=== PATIENT | female | born 1965 | race African-American/Black ===

== ENCOUNTER → 2017-08-19 | Outpatient (CLI) | payer MEDICARE ==
[2017-08-19 14:33] LABS: BASO % 0.3 % (0.0-2.0); EOS # 0.1 (0.0-0.7); EOS % 1.3 % (0-4.0); GRAN % 54.7 % (42.2-75.2); LYMPH # 3.2 (1.2-3.4); MEAN CELL VOLUME 91 fl (80.0-100.0); MEAN CORPUSCULAR HGB CONC 32 g/dl (33.0-37.0); MEAN PLATELET VOLUME 11.9 fl (7.4-10.4); MONO # 0.8 (0.1-0.6); MONO % 8.4 % (1.7-9.3); PLATELET COUNT 227 K/mm3 (130-400); RED BLOOD COUNT 3.93 M/mm3 (4.10-5.30); REDCELL DISTRIBUTION WIDTH-CV 12.3 % (11.5-14.5)
[2017-08-19 14:35] LABS: HEMATOCRIT 35.8 % (37.0-47.0); HEMOGLOBIN 11.5 g/dl (12.5-16.0); MEAN CORPUSCULAR HEMOGLOBIN 29 pg (27.0-31.0)
[2017-08-19 14:44] LABS: CALCIUM 9.9 mg/dL (8.4-10.2); CREATININE, serum 0.9 mg/dL (0.52-1.25); POTASSIUM 3.8 mmol/L (3.4-5.0)
== END ==
LOC: COL.LAB 10:55
PROVIDERS: Family Medicine
DX: E11.9 Type 2 diabetes mellitus without complications (principal)

== ENCOUNTER → 2017-12-16 | Outpatient (CLI) | payer MEDICARE ==
[2017-12-16 17:49] LABS: BASO % 0.1 % (0.0-2.0); EOS # 0.1 (0.0-0.7); GRAN # 3.7 (1.4-6.5); GRAN % 48.2 % (42.2-75.2); HEMOGLOBIN 10.3 g/dl (12.5-16.0); LYMPH # 3.3 (1.2-3.4); MEAN CELL VOLUME 89 fl (80.0-100.0); MEAN CORPUSCULAR HEMOGLOBIN 29 pg (27.0-31.0); MEAN CORPUSCULAR HGB CONC 33 g/dl (33.0-37.0); MONO # 0.6 (0.1-0.6); MONO % 7.4 % (1.7-9.3); PLATELET COUNT 195 K/mm3 (130-400); RED BLOOD COUNT 3.55 M/mm3 (4.10-5.30); REDCELL DISTRIBUTION WIDTH-CV 12.2 % (11.5-14.5)
[2017-12-16 17:51] LABS: HEMATOCRIT 31.4 % (37.0-47.0)
[2017-12-16 17:59] LABS: CALCIUM 9.4 mg/dL (8.4-10.2); CREATININE, serum 0.89 mg/dL (0.52-1.25); POTASSIUM 4.1 mmol/L (3.4-5.0)
== END ==
LOC: COL.LAB 17:26
PROVIDERS: Family Medicine
DX: E11.9 Type 2 diabetes mellitus without complications (principal); Z86.2 Personal history of diseases of the blood and blood-forming organs and certain disorders involving the immune mechanism

== ENCOUNTER 2017-12-29 16:45 | Outpatient (RCR) | payer MEDICARE | END 2018-01-10 | disposition home or self-care (01) | LOC: WSPT | DX: R26.89 Other abnormalities of gait and mobility (principal); Z87.39 Personal history of other diseases of the musculoskeletal system and connective tissue | CPT/HCPCS: G8978-GP; G8979-GP ==

== ENCOUNTER → 2018-02-03 | Outpatient (CLI) | payer MEDICARE ==
[2018-02-03 14:14] LABS: BASO % 0.2 % (0.0-2.0); EOS # 0.1 (0.0-0.7); EOS % 0.6 % (0-4.0); GRAN # 5.5 (1.4-6.5); LYMPH # 2.6 (1.2-3.4); LYMPH % 29.2 % (20.0-51.0); MEAN CELL VOLUME 88 fl (80.0-100.0); MEAN CORPUSCULAR HEMOGLOBIN 29 pg (27.0-31.0); MEAN CORPUSCULAR HGB CONC 33 g/dl (33.0-37.0); MEAN PLATELET VOLUME 12.7 fl (7.4-10.4); MONO # 0.7 (0.1-0.6); MONO % 7.8 % (1.7-9.3); PLATELET COUNT 194 K/mm3 (130-400); RED BLOOD COUNT 3.82 M/mm3 (4.10-5.30); REDCELL DISTRIBUTION WIDTH-CV 12.2 % (11.5-14.5)
[2018-02-03 14:15] LABS: HEMATOCRIT 33.7 % (37.0-47.0)
[2018-02-03 14:29] LABS: ALBUMIN 4.1 gm/dL (3.5-5.0); BILIRUBIN,TOTAL 0.2 mg/dL (0.0-1.0); CALCIUM 9.5 mg/dL (8.4-10.2); CREATININE, serum 0.95 mg/dL (0.52-1.25); POTASSIUM 4.3 mmol/L (3.4-5.0); TOTAL PROTEIN 7.6 gm/dL (6.4-8.2)
[2018-02-03 14:58] LABS: TSH w REFLEX 1.55 uIU/mL (0.465-4.680)
== END ==
LOC: COL.LAB 12:24
PROVIDERS: Family Medicine
DX: E11.9 Type 2 diabetes mellitus without complications (principal); I10 Essential (primary) hypertension; R53.83 Other fatigue; Z86.2 Personal history of diseases of the blood and blood-forming organs and certain disorders involving the immune mechanism

== ENCOUNTER → 2018-02-18 | Outpatient (CLI) | payer MEDICARE ==
[~2018-02-18] VITALS: Ht 172.7 cm; Wt 102.5 kg
[~2018-02-18] MED LIST: HUMALOG100 U/ML SQ; HYZAAR 25 MG-101 TAB PO; NEURONTIN300 MG/CAP PO; PRIL40 PO; TRESIBA FL100 UNIT/1 SQ
[2018-02-18 16:26] VITALS: BP 140/60; PULSE 80
== END ==
LOC: LIGHT 11:50
DX: E11.40 Type 2 diabetes mellitus with diabetic neuropathy, unspecified (principal); I10 Essential (primary) hypertension; E66.9 Obesity, unspecified; Z68.34 Body mass index [BMI] 34.0-34.9, adult; Z71.3 Dietary counseling and surveillance
CPT/HCPCS: G0463

== ENCOUNTER 2018-04-14 10:30 | Outpatient (RCR) | payer MEDICARE | END 2018-04-19 | disposition home or self-care (01) | LOC: WSPT | DX: R26.89 Other abnormalities of gait and mobility (principal); Z87.39 Personal history of other diseases of the musculoskeletal system and connective tissue | CPT/HCPCS: G8978-GP; G8979-GP ==

== ENCOUNTER → 2018-04-14 | Outpatient (CLI) | payer MEDICARE ==
[2018-04-14 16:28] LABS: BASO % 0.4 % (0.0-2.0); EOS # 0.1 (0.0-0.7); GRAN # 4.7 (1.4-6.5); GRAN % 57.2 % (42.2-75.2); HEMOGLOBIN 10.7 g/dl (12.5-16.0); LYMPH # 2.7 (1.2-3.4); LYMPH % 32.9 % (20.0-51.0); MEAN CELL VOLUME 92 fl (80.0-100.0); MEAN CORPUSCULAR HEMOGLOBIN 29 pg (27.0-31.0); MEAN CORPUSCULAR HGB CONC 31 g/dl (33.0-37.0); MEAN PLATELET VOLUME 12.4 fl (7.4-10.4); MONO # 0.7 (0.1-0.6); PLATELET COUNT 213 K/mm3 (130-400); RED BLOOD COUNT 3.73 M/mm3 (4.10-5.30)
[2018-04-14 16:31] LABS: HEMATOCRIT 34.3 % (37.0-47.0)
[2018-04-14 16:45] LABS: HIV 1/2 Antibodies Non-Reactive; HIV-1p24 Antigen Non-Reactive
== END ==
LOC: COL.LAB 14:32
PROVIDERS: Family Medicine
DX: Z13.0 Encounter for screening for diseases of the blood and blood-forming organs and certain disorders involving the immune mechanism (principal); Z11.4 Encounter for screening for human immunodeficiency virus [HIV]

== ENCOUNTER → 2018-09-01 | Outpatient (CLI) | payer MEDICARE ==
[2018-09-01 17:24] LABS: BASO % 0.2 % (0.0-2.0); EOS # 0.1 (0.0-0.7); EOS % 0.7 % (0-4.0); GRAN # 5.9 (1.4-6.5); GRAN % 61.1 % (42.2-75.2); HEMOGLOBIN 10.5 g/dl (12.5-16.0); MEAN CELL VOLUME 89 fl (80.0-100.0); MEAN CORPUSCULAR HEMOGLOBIN 28 pg (27.0-31.0); MEAN CORPUSCULAR HGB CONC 31 g/dl (33.0-37.0); MEAN PLATELET VOLUME 12.6 fl (7.4-10.4); MONO # 0.6 (0.1-0.6); MONO % 6.6 % (1.7-9.3); PLATELET COUNT 214 K/mm3 (130-400); RED BLOOD COUNT 3.78 M/mm3 (4.10-5.30); REDCELL DISTRIBUTION WIDTH-CV 12.5 % (11.5-14.5)
[2018-09-01 17:28] LABS: HEMATOCRIT 33.6 % (37.0-47.0)
[2018-09-01 17:38] LABS: ALBUMIN 3.8 gm/dL (3.5-5.0); BILIRUBIN,TOTAL 0.2 mg/dL (0.0-1.0); CALCIUM 9.7 mg/dL (8.4-10.2); CHOLESTEROL RISK RATIO 4.6; CREATININE, serum 1.06 mg/dL (0.52-1.25); POTASSIUM 3.5 mmol/L (3.4-5.0); TOTAL PROTEIN 7.7 gm/dL (6.4-8.2)
[2018-09-01 23:13] LABS: FOLLICLE STIMULATING HORMONE 15.8 mIU/mL (())
== END ==
LOC: ZCOL.LAB 16:55
PROVIDERS: Family Medicine
DX: Z13.6 Encounter for screening for cardiovascular disorders (principal); D64.9 Anemia, unspecified; I10 Essential (primary) hypertension; N95.1 Menopausal and female climacteric states

== ENCOUNTER → 2018-09-24 | Outpatient (CLI) | payer MEDICARE | LOC: ZCOL.LAB 17:36 | DX: E11.621 Type 2 diabetes mellitus with foot ulcer (principal) ==

== ENCOUNTER → 2019-05-02 | Outpatient (CLI) | payer MEDICARE ==
[2019-05-02 17:26] LABS: ALBUMIN 4.3 gm/dL (3.5-5.0); BILIRUBIN,TOTAL 0.3 mg/dL (0.0-1.0); CREATININE, serum 0.86 (0.52-1.25); TOTAL PROTEIN 7.8 gm/dL (6.4-8.2)
[2019-05-02 17:34] LABS: BASO % 0.2 % (0.0-2.0); EOS # 0.1 (0.0-0.7); EOS % 0.9 % (0-4.0); GRAN # 6.4 (1.4-6.5); GRAN % 60.3 % (42.2-75.2); LYMPH # 3.4 (1.2-3.4); LYMPH % 32.2 % (20.0-51.0); MEAN CELL VOLUME 92 fl (80.0-100.0); MEAN CORPUSCULAR HEMOGLOBIN 29 pg (27.0-31.0); MEAN CORPUSCULAR HGB CONC 31 g/dl (33.0-37.0); MEAN PLATELET VOLUME 12.4 fl (7.4-10.4); MONO # 0.7 (0.1-0.6); MONO % 6.2 % (1.7-9.3); PLATELET COUNT 240 K/mm3 (130-400); RED BLOOD COUNT 3.81 M/mm3 (4.10-5.30); REDCELL DISTRIBUTION WIDTH-CV 12.6 % (11.5-14.5)
[2019-05-03 17:13] LABS: HEPATITIS C VIRUS ANTIBODY Negative (Negative); HIV ANTIGEN-ANTIBODY COMBO-AMS Negative (Negative)
== END ==
LOC: ZCOL.LAB 10:12
PROVIDERS: Family Medicine
DX: Z11.3 Encounter for screening for infections with a predominantly sexual mode of transmission (principal); Z11.4 Encounter for screening for human immunodeficiency virus [HIV]; Z11.59 Encounter for screening for other viral diseases; L50.9 Urticaria, unspecified; E11.621 Type 2 diabetes mellitus with foot ulcer; H60.501 Unspecified acute noninfective otitis externa, right ear

== ENCOUNTER → 2019-09-21 | Outpatient (CLI) | payer MEDICARE ==
[2019-09-21 20:13] LABS: BASO % 0.2 % (0.0-2.0); EOS % 0.4 % (0-4.0); GRAN # 6.1 (1.4-6.5); HEMOGLOBIN 10.7 g/dl (12.5-16.0); LYMPH # 2.2 (1.2-3.4); LYMPH % 24.5 % (20.0-51.0); MEAN CELL VOLUME 91 fl (80.0-100.0); MEAN CORPUSCULAR HEMOGLOBIN 29 pg (27.0-31.0); MEAN CORPUSCULAR HGB CONC 32 g/dl (33.0-37.0); MEAN PLATELET VOLUME 13.5 fl (7.4-10.4); MONO # 0.6 (0.1-0.6); MONO % 6.7 % (1.7-9.3); PLATELET COUNT 182 K/mm3 (130-400); RED BLOOD COUNT 3.75 M/mm3 (4.10-5.30); REDCELL DISTRIBUTION WIDTH-CV 12.9 % (11.5-14.5)
[2019-09-21 20:22] LABS: BILIRUBIN,TOTAL 0.3 mg/dL (0.0-1.0); CALCIUM 9.1 mg/dL (8.4-10.2); CHOLESTEROL RISK RATIO 3.8; CREATININE, serum 0.88 (0.52-1.25); POTASSIUM 4.1 mmol/L (3.4-5.0); TOTAL PROTEIN 7.4 gm/dL (6.4-8.2)
[2019-09-21 20:52] LABS: THYROID STIMULATING HORMONE 1.07 uIU/mL (0.465-4.680)
[2019-09-21 20:57] LABS: HIV 1/2 Antibodies Non-Reactive; HIV-1p24 Antigen Non-Reactive
== END ==
LOC: ZCOL.LAB 16:40
PROVIDERS: Family Medicine
DX: Z11.4 Encounter for screening for human immunodeficiency virus [HIV] (principal); I10 Essential (primary) hypertension; E11.9 Type 2 diabetes mellitus without complications

== ENCOUNTER → 2019-10-07 | Outpatient (CLI) | payer MEDICARE | LOC: COL.LAB 13:26 | DX: E11.621 Type 2 diabetes mellitus with foot ulcer (principal); Z87.39 Personal history of other diseases of the musculoskeletal system and connective tissue ==

== ENCOUNTER 2019-12-02 16:45 | Inpatient (IN) | payer MEDICARE ==
[~2019-12-02] VITALS: Ht 172.7 cm; Wt 88.6 kg
[~2019-12-02 16:45] MED LIST changes: -ERY-TAB250 M1 PO; -FLONASE NASAL S16 GM NS; -HCTZ 25MG TAB25 MG PO; -OZEMPIC0.25 MG/0. SQ; -PROBIOTIC FORMU1 CAP PO; -REFRESH TEARS 330 ML OP; -ZYRTEC 10MG10 MG PO
[2019-12-02] MEDS ORDERED: HCTZ 25MG TAB25 MG PO (17:16)
[2019-12-02] MEDS ORDERED: OZEMPIC0.25 MG/0. SQ (17:17)
[2019-12-02] MEDS ORDERED: PROBIOTIC FORMU1 CAP PO (17:17)
[2019-12-02] MEDS ORDERED: ZYRTEC 10MG10 MG PO (17:18)
[2019-12-02] MEDS ORDERED: FLONASE NASAL S16 GM NS (17:18)
[2019-12-02] MEDS ORDERED: ERY-TAB250 M1 PO (17:18)
[2019-12-02 17:44] LABS: ALBUMIN 3.6 gm/dL (3.5-5.0); BILIRUBIN,TOTAL 0.8 mg/dL (0.0-1.0); CALCIUM 9.4 mg/dL (8.4-10.2); POTASSIUM 3.5 mmol/L (3.4-5.0); TOTAL PROTEIN 8.3 gm/dL (6.4-8.2)
[2019-12-02 18:20] LABS: C-REACTIVE PROTEIN 37.8 mg/dL (0.0-0.9)
[2019-12-02 18:41] LABS: MEAN CELL VOLUME 86 fl (80.0-100.0); MEAN CORPUSCULAR HGB CONC 32 g/dl (33.0-37.0); MEAN PLATELET VOLUME 11.8 fl (7.4-10.4); PLATELET COUNT 258 K/mm3 (130-400); RED BLOOD COUNT 3.51 M/mm3 (4.10-5.30); REDCELL DISTRIBUTION WIDTH-CV 13.2 % (11.5-14.5)
[2019-12-02 18:55] LABS: HEMATOCRIT 30.1 % (37.0-47.0); HEMOGLOBIN 9.6 g/dl (12.5-16.0); MEAN CORPUSCULAR HEMOGLOBIN 27 pg (27.0-31.0)
[2019-12-02 19:16] LABS: BAND 9 % (0-10); HYPOCHROMIA 3+; LYMPHOCYTE 18 % (20.0-51.0); METAMYELOCYTE 1 % (0-0); MYELOCYTE 1 % (0-0); NEUTROPHILS 70 % (42.0-75.2); PLATELET ESTIMATE NORMAL (NORMAL)
[2019-12-02] MEDS ORDERED: REFRESH TEARS 330 ML OP (20:01)
--- NOTE | 2019-12-02 21:45 | NUR ---
ARRIVED TO FLOOR VIA W/C. IS ALERT AND ORIENTED X4. HAS SL TO RIGHT AC. RT FOOT WRAPPED.
[2019-12-02 21:58] VITALS: BP 141/66; PULSE 103; TEMP 99.2
[2019-12-02 22:40] LABS: INR 1.2 (0.8-3.0); PROTHROMBIN TIME 13.7 SECONDS (9.7-12.8)
--- NOTE | 2019-12-02 23:15 | NUR ---
WOUND CULTURES OBTAINED FROM 3 AREAS ON RIGHT FOOT THAT ARE OPEN AND DRAINING. RT HEEL, RT MEDIAL AND RT LATERAL.
--- NOTE | 2019-12-02 23:58 | NUR ---
MEDICATED WITH PHENERGAN 25MG PO FOR NAUSEA AND ES TYLENOL 1000MG PO FOR BACK PAIN. IV ANTIBIOTIC INFUSING TO RIGHT AC SITE WITHOUT REDNESS OR SWELLING.
[2019-12-03] VITALS (7 sets, daily range): BP systolic 108–153; BP diastolic 40–87; PULSE 80–108; TEMP 98.1–99.7
--- NOTE | 2019-12-03 03:00 | NUR ---
Last dose of oral potassium given. Pt resting in bed, IV antibiotic complete, line flushed.
--- NOTE | 2019-12-03 04:52 | NUR ---
Pt had emesis in bathroom trashcan, reports continued nausea since oral potassium.
--- NOTE | 2019-12-03 05:15 | NUR ---
New orders received from Mike JEFFERS, dose of Zofran 4mg IVP given now.
--- NOTE | 2019-12-03 06:00 | NUR ---
Phenergan 25mg po given with Protonix this AM. IV Zosyn infusing to right AC without problem.
[2019-12-03 08:34] LABS: MEAN CELL VOLUME 85 fl (80.0-100.0); MEAN CORPUSCULAR HGB CONC 33 g/dl (33.0-37.0); MEAN PLATELET VOLUME 11.3 fl (7.4-10.4); PLATELET COUNT 242 K/mm3 (130-400); REDCELL DISTRIBUTION WIDTH-CV 13.2 % (11.5-14.5)
[2019-12-03 08:41] LABS: HEMATOCRIT 27.1 % (37.0-47.0); MEAN CORPUSCULAR HEMOGLOBIN 28 pg (27.0-31.0)
[2019-12-03 08:46] LABS: ALBUMIN 3.3 gm/dL (3.5-5.0); BILIRUBIN,TOTAL 0.6 mg/dL (0.0-1.0); CALCIUM 9.2 mg/dL (8.4-10.2); CREATININE, serum 1.06 (0.52-1.25); POTASSIUM 3.2 mmol/L (3.4-5.0); TOTAL PROTEIN 7.6 gm/dL (6.4-8.2)
[2019-12-03 09:25] LABS: BAND 14 % (0-10); LYMPHOCYTE 19 % (20.0-51.0); METAMYELOCYTE 2 % (0-0); NEUTROPHILS 59 % (42.0-75.2); PLATELET ESTIMATE NORMAL (NORMAL)
--- NOTE | 2019-12-03 10:00 | NUR ---
Patient resting in bed at this time. Patient is alert and oriented, answers questions appropriately. CT arrives to take patient for CT scan, will administer scheduled medications upon return. Patient leaves the floor via wheelchair.
--- NOTE | 2019-12-03 10:45 | NUR ---
Patient returns from CT via wheel chair. Patient denies pain in right foot, dressing is CDI, no drainage noted. Patient denies needs at this time, call light within reach.
--- NOTE | 2019-12-03 11:15 | NUR ---
Patient reports burning and coldness at peripherial IV site. Visual assessment shows no redness or swelling but patient is unable to tolerate an IV flush to the site. IV access discontinued and reported access loss to hospitalist, will await central line placement. Patient denied further needs at this time, call light within reach.
--- NOTE | 2019-12-03 13:43 | NUR ---
Software Licensing Specialist offered prayer and support with patient.
--- NOTE | 2019-12-03 17:46 | NUR ---
Patient currently resting, rouses easily. Patient has c/o nausea and feeling of acid reflux, administered PRN anitemetics per orders. Patient continues to deny pain. IVF, antibiotics, and IV potassium run per orders. Patient currently eating dinner, denies needs at this time, call light within reach.
--- NOTE | 2019-12-03 21:00 | NUR ---
Changed dressing to right foot. Placed saline soaked gauze to right heel and right lateral wounds, covered right medial, heel and lateral wounds with ABD's and covered with kerlix. Wounds are very oderous and draining purulent drainage. Pt expresses concerns about amputation, desires debridement first before making any other decisions.
--- NOTE | 2019-12-03 21:10 | NUR ---
Medicated with ES Tylenol 2 tabs for back pain. Denies nausea at this time. Has IVF and antibiotics infusing to RIJ. Was given literature on Gangrene and Below the knee amputation.
--- NOTE | 2019-12-04 01:30 | NUR ---
RECEIVED PHONE CALL FROM [facility] REGARDING THIS PATIENT. [facility] REPORTS THEY RECEIVED AN EMERGENCY CALL FROM PTS [facility] STATING PT WAS "SEPTIC AND HAVING AN AMPUTATION". PT HAS A SON IN THE [employer], STATIONED IN [place]. UPDATED [facility] ON PATIENT'S CONDITION STABLE. [facility] RESPIRATORY THERAPY MANAGER: CYNTHIA CASE #[id number] PHONE NUMBER [phone]
--- NOTE | 2019-12-04 04:20 | NUR ---
Pt had linens and gown changed. She did sponge self off. Eating turkey sandwich, BS=87mg/dl. Discussed her desire to see Dr Mays regarding her rt foot, encouraged pt to speak with hospitalist today about this. Pt also asked about the [place], was informed about phone call received from [email or web address] at 0130.
[2019-12-04 04:45] VITALS: BP 128/66; PULSE 97; TEMP 97.7
[2019-12-04 07:34] LABS: BASO # 0.1 (0.0-0.2); BASO % 0.3 % (0.0-2.0); EOS # 0.1 (0.0-0.7); EOS % 0.5 % (0-4.0); GRAN # 12.6 (1.4-6.5); GRAN % 70.6 % (42.2-75.2); LYMPH # 3.6 (1.2-3.4); LYMPH % 20.2 % (20.0-51.0); MEAN CELL VOLUME 88 fl (80.0-100.0); MEAN CORPUSCULAR HGB CONC 32 g/dl (33.0-37.0); MEAN PLATELET VOLUME 11.3 fl (7.4-10.4); MONO # 1.1 (0.1-0.6); MONO % 6.3 % (1.7-9.3); PLATELET COUNT 293 K/mm3 (130-400); RED BLOOD COUNT 3.15 M/mm3 (4.10-5.30); REDCELL DISTRIBUTION WIDTH-CV 13.7 % (11.5-14.5)
[2019-12-04 07:37] VITALS: BP 136/58; PULSE 100; TEMP 98.2
[2019-12-04 07:44] LABS: ALBUMIN 3.2 gm/dL (3.5-5.0); BILIRUBIN,TOTAL 0.5 mg/dL (0.0-1.0); CALCIUM 8.6 mg/dL (8.4-10.2); CREATININE, serum 1.01 (0.52-1.25); POTASSIUM 3.1 mmol/L (3.4-5.0); TOTAL PROTEIN 7.4 gm/dL (6.4-8.2)
[2019-12-04 07:56] LABS: HEMATOCRIT 27.7 % (37.0-47.0); HEMOGLOBIN 8.8 g/dl (12.5-16.0); MEAN CORPUSCULAR HEMOGLOBIN 28 pg (27.0-31.0)
--- NOTE | 2019-12-04 09:15 | NUR ---
Patient sitting up at edge of bed. Alert & oriented. She did not like her breakfast. Blood sugar not requiring insulin this am. Right foot dressing intact. foul odor smeeling. central line with IVF & antibioitc & K+ replacement per orders.
[2019-12-04 11:02] VITALS: BP 132/62; PULSE 99; TEMP 98
--- NOTE | 2019-12-04 12:57 | NUR ---
SW met with patient about DC plan. Patient reports that she resides in with her DTR Corie . Patient reports that she has transportation. Patient indicated that she had a care concern. Patient was given information for House to address additional concerns. Patient declines home health services. Patient fills medications at [facility] in . Patient denies having a PCP but is not opposed to a referral to a care network. Will continue to follow.
[2019-12-04 16:00] VITALS: BP 140/72; PULSE 107; TEMP 98.1
--- NOTE | 2019-12-04 16:40 | NUR ---
Patient daughter at bedside visiting. She is assisting her mother with hygiene. Patient requesting privacy & no assistance. I will change her foot dressing when she is done with bedbath. Hospitalist & rounded this afternoon & once again they reviewed with patient risk of waiting to have BKA. Patient still very hesitant. K+ infusion completed. Iv antibioitcs per orders. Will monitor
--- NOTE | 2019-12-04 18:43 | NUR ---
Wet to dry dressing completed per orders. Prior dressing was odorous & soiled. She tolerated well. She has dinner. Continues to deny pain. Will report off to night nurse.
--- NOTE | 2019-12-04 19:51 | NUR ---
Pt complains of back pain/headache. Medicated with ES Tylenol 1000mg po now. Is alert and oriented. Verbalized being pleased with Dr Mays, still voices desire to have foot I/D versus amputation. RIJ patent with IVF and antibiotics infusing without problem.
[2019-12-04 20:45] VITALS: BP 149/75; PULSE 109; TEMP 99
[2019-12-04 23:18] VITALS: BP 129/58; PULSE 109; TEMP 98
--- NOTE | 2019-12-05 03:38 | NUR ---
Dressing changed to right foot with Dakins soaked gauze. Cleansed foot with NS, placed soaked gauze in ulcers, covered with ABD and kerlix with lyudmila wrap. Tolerated without problem.
[2019-12-05 03:43] VITALS: BP 124/51; PULSE 102; TEMP 99
--- NOTE | 2019-12-05 05:47 | NUR ---
PT AWAKENED FOR AM MED. HAS BEEN SLEEPING WELL THIS SHIFT. TMAX=99.0.
[2019-12-05 06:52] LABS: BASO % 0.2 % (0.0-2.0); EOS # 0.1 (0.0-0.7); EOS % 0.7 % (0-4.0); GRAN % 70.1 % (42.2-75.2); LYMPH # 3.1 (1.2-3.4); LYMPH % 21.6 % (20.0-51.0); MEAN CELL VOLUME 91 fl (80.0-100.0); MEAN CORPUSCULAR HGB CONC 31 g/dl (33.0-37.0); MEAN PLATELET VOLUME 11.1 fl (7.4-10.4); MONO # 0.9 (0.1-0.6); MONO % 6.1 % (1.7-9.3); PLATELET COUNT 259 K/mm3 (130-400); RED BLOOD COUNT 2.75 M/mm3 (4.10-5.30); REDCELL DISTRIBUTION WIDTH-CV 13.7 % (11.5-14.5)
[2019-12-05 06:55] LABS: HEMATOCRIT 24.9 % (37.0-47.0); HEMOGLOBIN 7.6 g/dl (12.5-16.0); MEAN CORPUSCULAR HEMOGLOBIN 28 pg (27.0-31.0)
[2019-12-05 07:13] LABS: ALBUMIN 2.8 gm/dL (3.5-5.0); BILIRUBIN,TOTAL 0.4 mg/dL (0.0-1.0); CALCIUM 8.5 mg/dL (8.4-10.2); CREATININE, serum 1.35 (0.52-1.25); MAGNESIUM 1.7 mg/dL (1.6-2.3); POTASSIUM 3.6 mmol/L (3.4-5.0); TOTAL PROTEIN 6.7 gm/dL (6.4-8.2)
[2019-12-05 07:17] VITALS: BP 123/53; PULSE 103; TEMP 98.2
--- NOTE | 2019-12-05 08:25 | NUR ---
Sitting on edge of bed eating breakfast. Denies pain at this time. Dressing to right foot CDI. Denies needs at this time.
[2019-12-05 08:46] LABS: PATHOLOGY DIFF REVIEW OK
--- NOTE | 2019-12-05 09:45 | NUR ---
Dressing change performed to right ankle. Cleaned foot up to midcalf with normal saline. Measured each ulcer. Outer right ankle: width 5.5cm, height 4.0cm, and depth 1.5cm. Bottom right heel: 3.0cm width, 2.0cm height, and 2.0cm depth. Inner right ankle: 4.5cm width and 3.0cm height. The tissue to the inner right ankle remains intact but is boggy to touch. Tissue to outer right ankle and bottom of heel are grayish in color in some spots, other areas reddish. Ulcer on bottom of right heel packed with one 4x4 that is soaked in Dakins solution and covered with two 4x4's that are soaked in Dakins solution. Ulcer to outer right ankle packed with one 4x4 soaked in Dakins solution and then covered with two 4x4's. Ulcer to inner right ankle covered with two 4x4's soaked in Dakins solution. ABD gauze placed on inner and outer portion of ankle to wrap under foot as well. Reinforced with omar and then an lyudmila wrap. Ulcers have foul odor. Patient tolerates without difficulty and explains that she does not experience pain as she is not able to feel that foot. Right leg elevated on pillow. Patient denies further needs at this time.
--- NOTE | 2019-12-05 10:56 | NUR ---
Sex Worker Or Escort was notified by patient's RN that patient would like to speak with SW. Patient inquired about setting up Advance Directives. SW provided explanation on DPOA-HC and patient would like to complete form. SW assisted patient in completing form which designated her daughter Corie and son, Jeff as alternate. SW provided original and copies to patient then placed copy in patient's chart. SW to continue to follow for any discharge needs.
[2019-12-05 12:00] VITALS: BP 147/71; PULSE 107; TEMP 97.8
--- NOTE | 2019-12-05 13:30 | NUR ---
REMOVED RIGHT IJ PER ORDERS DUE TO PICC PLACEMENT. REMOVED SUTURES, IJ TIP INTACT, AND PATIENT TOLERATED WELL. COVERED SITE WITH GAUZE AND HELD PRESSURE. APPLIED CLEAN GAUZE & TEGA FOR FINAL DRESSING. PATIENT INSTRUCTED TO LAY FLAT FOR AN ADDITIONAL 10 MINUTES FOR GOOD MEASURE. NO DRAINAGE NOTED TO IJ SITE.
--- NOTE | 2019-12-05 15:30 | NUR ---
Patient having some nausea and would like Zofran. Zofran administered as prescribed. Patient denies further needs at this time.
[2019-12-05 15:32] VITALS: BP 151/86; PULSE 107; TEMP 97.9
--- NOTE | 2019-12-05 17:34 | NUR ---
Sitting up in recliner chair on cell phone. Patient denies concerns or needs at this time.
--- NOTE | 2019-12-05 18:00 | NUR ---
Patient requests Tylenol for low back pain. Administered Tylenol as prescribed. Patient voices no further needs at this time.
[2019-12-05 19:45] VITALS: BP 142/64; PULSE 106; TEMP 99
--- NOTE | 2019-12-05 19:45 | NUR ---
Received report from ROM Herron. Pt currently sitting up in bed and talking to family on her phone. Pt has her call light within reach.
--- NOTE | 2019-12-05 22:00 | NUR ---
Pt seemed to be pretty down as she was talking with me about her leg. She seemed very concerned about what could happened. She stated that her family was concerned as well. Pt did cheer up when I asked her if she wanted to talk about any concerns that she may have. Pt has not had any pain but she did state that as I did her dressing change she couldn't feel anything. with the dressing there were 4x4's that were soaked with Dakin's solution. The pt has 2 ulcers on her right leg. The one on the right side of her food was the larges one this one need about all of the 4x4 packed inside the wound and there was one soaked 4x4 placed on top the one on her hill was packed as well and a 4x4 was placed on top. the once on the left side of her right food did not need to be packed it just had a soaked 4x4 placed over it. There are [address] around the foot and there is an lyudmila wrap and omar dressing to keep the dressing in place. Pt tolerated everything very well.
--- NOTE | 2019-12-05 23:15 | NUR ---
Pt is still awake in her room . Stated that she wasn't sleeping just listening to music in her room . Pt also woke up when her new medications were given. Pt has had a pretty good night. She is a very sweet lady but is concerned about what could happen. Pt has her call light within reach pt has been ambulating through the room independently.
[2019-12-06] VITALS (7 sets, daily range): BP systolic 133–169; BP diastolic 49–89; PULSE 100–108; TEMP 97.9–98.7
--- NOTE | 2019-12-06 06:00 | NUR ---
Pt stated that whenever I brought back her antibiotic if I could bring her something for nausea. Pt was given Zofran with her morning medciations. Pt has her call light within reach and her bed is in lowest position .
[2019-12-06 07:03] LABS: BASO % 0.3 % (0.0-2.0); EOS # 0.1 (0.0-0.7); EOS % 0.9 % (0-4.0); GRAN # 8.6 (1.4-6.5); GRAN % 67.2 % (42.2-75.2); LYMPH # 3.2 (1.2-3.4); LYMPH % 24.8 % (20.0-51.0); MEAN CELL VOLUME 90 fl (80.0-100.0); MEAN CORPUSCULAR HGB CONC 31 g/dl (33.0-37.0); MEAN PLATELET VOLUME 10.9 fl (7.4-10.4); MONO # 0.7 (0.1-0.6); MONO % 5.5 % (1.7-9.3); PLATELET COUNT 289 K/mm3 (130-400); RED BLOOD COUNT 2.81 M/mm3 (4.10-5.30); REDCELL DISTRIBUTION WIDTH-CV 13.5 % (11.5-14.5)
[2019-12-06 07:13] LABS: HEMATOCRIT 25.4 % (37.0-47.0); HEMOGLOBIN 7.9 g/dl (12.5-16.0); MEAN CORPUSCULAR HEMOGLOBIN 28 pg (27.0-31.0)
[2019-12-06 07:17] LABS: C-REACTIVE PROTEIN 6.2 mg/dL (0.0-0.9); CALCIUM 8.8 mg/dL (8.4-10.2); CREATININE, serum 1.05 (0.52-1.25); MAGNESIUM 1.6 mg/dL (1.6-2.3); POTASSIUM 4.1 mmol/L (3.4-5.0)
--- NOTE | 2019-12-06 07:35 | NUR ---
Reported off to ROM Ca. Pt is currently sitting up in bed eating her breakfast. Pt requested to call the kitchen so I assisted pt with her ordering from the kitchen. Pt did state during shift report that she wanted to know if her records could be passed on to [facility] as well. She just wants to know if there is any help for her in saving her leg. Nurse Lanny did state that she would pass this along. Pt has her call light within reach and her bed is in lowest position.
--- NOTE | 2019-12-06 09:30 | NUR ---
Patient alert and oriented, answers questions appropriately. See assessment. RLE dressing with scant amount of drainage noted, patient prefers dressing change to be done at a later time. Patient has several c/o regarding Ortho Dr and his recommendations, requests that additional transfers be sent. Updated Helga with Hospitalist services of patients request. Patient reports no sensation to BLE, historically for the past ten years. No other c/o at this time.
--- NOTE | 2019-12-06 09:31 | NUR ---
Irrigating Pump Operator attended clinical rounds with the team. Hospitalist advised patient that [facility] declined referral and that they would recommend BKA. Patient would like Hospitalist to check about transfer to [place]. Patient does not want BKA. SW to continue to follow.
--- NOTE | 2019-12-06 11:34 | NUR ---
Called Transfer Line at [facility] in [place] and spoke with Imani at [phone]. Informed her that patient had Medicare Part A/B and no pre auth would be obtained for possible transfer. She stated she would talk with her physician and then contact Linda Zuniga APRN concerning possible transfer and Peer to Peer information. I called Linda to notify her of the plan. Fax number for Transfer is [phone].
--- NOTE | 2019-12-06 12:58 | NUR ---
Per Log Handler, patient is transferring to [facility] in [place].
--- NOTE | 2019-12-06 17:00 | NUR ---
Dressing to right foot wounds completed. Ball of foot with hardness and necrotic areas noted, right ankle area with open area, slough and debris noted with irrigation, no blood noted, wound bed necrotic, green drainage noted, no defined edges. Outer right foot with open area noted, green drainage, necrotic areas noted to wound bed, no blood noted, no defined edges. Open area to sole of foot with necrotic areas noted, no blood noted, green drainage, no defined borders. Strong odor noted. Entire heel boggy and soft. Aquacel AG applied to all wound beds, covered with 4x4, ABD and coban. Entire foot irriated with Dakins solution. No pulses palpable to RLE. Discoloration noted from knee down of right leg. No sensation reported in RLE. No c/o at this time.
--- NOTE | 2019-12-06 19:30 | NUR ---
Report received. Assumed care for warehouse worker 2nd shift. A&Ox3. Assessment complete. VS stable. Denies pain/shorntess of breath/nausea. PICC to right upper arm flushes without difficulty-NS@75mls/hr. Dressing to right lower extremity CDI with surgical bootie covering. Dressing has been changed. Plan of care discussed for antibiotics this shift and calling for needs. Verbalizes understanding. Call light in reach. Will monitor.
[2019-12-07 00:20] VITALS: BP 121/67; PULSE 109; TEMP 98.7
--- NOTE | 2019-12-07 02:00 | NUR ---
Resting in bed eyes closed/audible snore. No s/s of distress noted. Call light in reach. Will monitor.
--- NOTE | 2019-12-07 04:12 | NUR ---
C/O loose stools. States they arent liquid but are frequent. Also states she believes she is getting a yeast infection from all the antibiotics. Requesting a new order for Diflucan. Will report off to day shift to request this AM. Will continue to monitor.
[2019-12-07 05:00] VITALS: BP 129/67; PULSE 101; TEMP 98.1
[2019-12-07 07:13] LABS: BASO % 0.3 % (0.0-2.0); EOS # 0.1 (0.0-0.7); EOS % 1.1 % (0-4.0); GRAN % 67.2 % (42.2-75.2); LYMPH # 2.9 (1.2-3.4); LYMPH % 24.2 % (20.0-51.0); MEAN CELL VOLUME 90 fl (80.0-100.0); MEAN CORPUSCULAR HGB CONC 31 g/dl (33.0-37.0); MEAN PLATELET VOLUME 10.6 fl (7.4-10.4); MONO # 0.7 (0.1-0.6); PLATELET COUNT 329 K/mm3 (130-400); RED BLOOD COUNT 2.94 M/mm3 (4.10-5.30); REDCELL DISTRIBUTION WIDTH-CV 13.3 % (11.5-14.5)
[2019-12-07 07:17] LABS: HEMATOCRIT 26.4 % (37.0-47.0); HEMOGLOBIN 8.1 g/dl (12.5-16.0); MEAN CORPUSCULAR HEMOGLOBIN 28 pg (27.0-31.0)
[2019-12-07 07:29] LABS: CREATININE, serum 1.11 (0.52-1.25); MAGNESIUM 1.9 mg/dL (1.6-2.3); POTASSIUM 4.3 mmol/L (3.4-5.0)
[2019-12-07 08:17] VITALS: BP 137/67; PULSE 107; TEMP 98.3
--- NOTE | 2019-12-07 09:30 | NUR ---
Patient alert and oriented, answers questions appropriately. See assessment. RLE with dressing CDI, no sensation reported to RLE, unable to palpate pulses. Defers dressing change at this time. Patient continues to request transfer to another facility regarding need for amputation. Patient does not want amputation of RLE and requests wound care only. Dr Pardo here to see patient
[2019-12-07] MEDS ORDERED: ZOSYN 3 GM-0.371 PD1 IV (11:10)
--- NOTE | 2019-12-07 13:05 | NUR ---
Patient transfered to [facility] per EMS at 1245. Report called to accepting nurse, paperwork sent.
== END 2019-12-07 12:45 | disposition critical access hospital, planned readmission (94) | DRG 871 ==
LOC: COL.ER 16:45 → SURG 20:04
PROVIDERS: Emergency Medicine; Nurse Practitioner Family; Physician Assistant; ADMIT Hospitalist
PROC: 02HV33Z Insertion of Infusion Device into Superior Vena Cava, Percutaneous Approach (ICD-10-PCS; principal; 2019-12-03)
PROC: 02HV33Z Insertion of Infusion Device into Superior Vena Cava, Percutaneous Approach (ICD-10-PCS; 2019-12-05)
DX: A41.9 Sepsis, unspecified organism (principal); A48.0 Gas gangrene; M86.9 Osteomyelitis, unspecified; E87.1 Hypo-osmolality and hyponatremia; E11.52 Type 2 diabetes mellitus with diabetic peripheral angiopathy with gangrene; N17.9 Acute kidney failure, unspecified; E11.69 Type 2 diabetes mellitus with other specified complication; E11.621 Type 2 diabetes mellitus with foot ulcer; L97.519 Non-pressure chronic ulcer of other part of right foot with unspecified severity; I10 Essential (primary) hypertension; E66.9 Obesity, unspecified; E11.42 Type 2 diabetes mellitus with diabetic polyneuropathy; K21.9 Gastro-esophageal reflux disease without esophagitis; D64.9 Anemia, unspecified; L89.896 Pressure-induced deep tissue damage of other site; K27.9 Peptic ulcer, site unspecified, unspecified as acute or chronic, without hemorrhage or perforation; Z79.4 Long term (current) use of insulin; Z79.51 Long term (current) use of inhaled steroids; B96.1 Klebsiella pneumoniae [K. pneumoniae] as the cause of diseases classified elsewhere; B95.5 Unspecified streptococcus as the cause of diseases classified elsewhere; T50.2X5A Adverse effect of carbonic-anhydrase inhibitors, benzothiadiazides and other diuretics, initial encounter; Z68.29 Body mass index [BMI] 29.0-29.9, adult
CPT/HCPCS: 99223-AI; 99232-AI; 99233-AI; 99239; C1751; J0696; J1815; J2405; J2543; J3370; J3475; J3480; J7030; J7050; Q9967

== ENCOUNTER → 2019-12-02 | Outpatient (CLI) | payer MEDICARE ==
[~2019-12-02] MED LIST changes: +ERY-TAB250 M1 PO; +FLONASE NASAL S16 GM NS; +HCTZ 25MG TAB25 MG PO; +OZEMPIC0.25 MG/0. SQ; +PROBIOTIC FORMU1 CAP PO; +REFRESH TEARS 330 ML OP; +ZYRTEC 10MG10 MG PO
== END ==
LOC: ZCOL.LAB 16:31
DX: E11.621 Type 2 diabetes mellitus with foot ulcer (principal); Z87.39 Personal history of other diseases of the musculoskeletal system and connective tissue

== ENCOUNTER → 2019-12-26 | Outpatient (CLI) | payer MEDICARE ==
[~2019-12-26] MED LIST changes: +ERY-TAB250 M1 PO; +FLONASE NASAL S16 GM NS; +HCTZ 25MG TAB25 MG PO; +OZEMPIC0.25 MG/0. SQ; +PROBIOTIC FORMU1 CAP PO; +REFRESH TEARS 330 ML OP; +ZOSYN 3 GM-0.371 PD1 IV; +ZYRTEC 10MG10 MG PO
[2019-12-26 15:37] LABS: MEAN CELL VOLUME 92 fl (80.0-100.0); MEAN CORPUSCULAR HGB CONC 30 g/dl (33.0-37.0); MEAN PLATELET VOLUME 11.6 fl (7.4-10.4); PLATELET COUNT 262 K/mm3 (130-400); RED BLOOD COUNT 3.05 M/mm3 (4.10-5.30)
[2019-12-26 15:38] LABS: HEMOGLOBIN 8.4 g/dl (12.5-16.0); MEAN CORPUSCULAR HEMOGLOBIN 28 pg (27.0-31.0)
[2019-12-26 15:47] LABS: ALBUMIN 3.6 gm/dL (3.5-5.0); BILIRUBIN,TOTAL 0.3 mg/dL (0.0-1.0); C-REACTIVE PROTEIN 1.5 mg/dL (0.0-0.9); CALCIUM 9.4 mg/dL (8.4-10.2); CREATININE, serum 0.93 (0.52-1.25); POTASSIUM 4.5 mmol/L (3.4-5.0); TOTAL PROTEIN 7.5 gm/dL (6.4-8.2)
== END ==
LOC: ZCOL.LAB 15:22
PROVIDERS: Internal Medicine Infectious Disease
DX: D64.9 Anemia, unspecified (principal); M86.9 Osteomyelitis, unspecified; Z79.899 Other long term (current) drug therapy

== ENCOUNTER → 2020-01-02 | Outpatient (CLI) | payer MEDICARE ==
[2020-01-02 19:53] LABS: HEMATOCRIT 29.6 % (37.0-47.0); MEAN CELL VOLUME 91 fl (80.0-100.0); MEAN CORPUSCULAR HEMOGLOBIN 28 pg (27.0-31.0); MEAN CORPUSCULAR HGB CONC 30 g/dl (33.0-37.0); MEAN PLATELET VOLUME 11.9 fl (7.4-10.4); PLATELET COUNT 257 K/mm3 (130-400); RED BLOOD COUNT 3.26 M/mm3 (4.10-5.30); REDCELL DISTRIBUTION WIDTH-CV 13.8 % (11.5-14.5)
[2020-01-02 20:05] LABS: ALBUMIN 3.6 gm/dL (3.5-5.0); BILIRUBIN,TOTAL 0.3 mg/dL (0.0-1.0); C-REACTIVE PROTEIN 1.3 mg/dL (0.0-0.9); CALCIUM 9.6 mg/dL (8.4-10.2); CREATININE, serum 1.14 (0.52-1.25); POTASSIUM 4.4 mmol/L (3.4-5.0); TOTAL PROTEIN 7.6 gm/dL (6.4-8.2)
== END ==
LOC: ZCOL.LAB 16:50
PROVIDERS: Internal Medicine Infectious Disease
DX: E11.52 Type 2 diabetes mellitus with diabetic peripheral angiopathy with gangrene (principal); E11.69 Type 2 diabetes mellitus with other specified complication; M86.9 Osteomyelitis, unspecified; I96 Gangrene, not elsewhere classified; Z79.891 Long term (current) use of opiate analgesic; Z79.4 Long term (current) use of insulin

== ENCOUNTER → 2020-01-09 | Outpatient (CLI) | payer MEDICARE ==
[2020-01-09 14:58] LABS: MEAN CELL VOLUME 91 fl (80.0-100.0); MEAN CORPUSCULAR HGB CONC 30 g/dl (33.0-37.0); MEAN PLATELET VOLUME 11.5 fl (7.4-10.4); PLATELET COUNT 294 K/mm3 (130-400); RED BLOOD COUNT 3.34 M/mm3 (4.10-5.30); REDCELL DISTRIBUTION WIDTH-CV 13.8 % (11.5-14.5)
[2020-01-09 15:00] LABS: HEMATOCRIT 30.3 % (37.0-47.0); HEMOGLOBIN 9.1 g/dl (12.5-16.0); MEAN CORPUSCULAR HEMOGLOBIN 27 pg (27.0-31.0)
[2020-01-09 15:08] LABS: ALBUMIN 3.7 gm/dL (3.5-5.0); BILIRUBIN,TOTAL 0.4 mg/dL (0.0-1.0); CALCIUM 9.5 mg/dL (8.4-10.2); CREATININE, serum 1.06 (0.52-1.25); POTASSIUM 4.1 mmol/L (3.4-5.0); TOTAL PROTEIN 7.5 gm/dL (6.4-8.2)
[2020-01-09 15:09] LABS: C-REACTIVE PROTEIN 2.3 mg/dL (0.0-0.9)
== END ==
LOC: ZCOL.LAB 14:18
PROVIDERS: Internal Medicine Infectious Disease
DX: E11.52 Type 2 diabetes mellitus with diabetic peripheral angiopathy with gangrene (principal); Z79.4 Long term (current) use of insulin; I96 Gangrene, not elsewhere classified

== ENCOUNTER → 2020-01-16 | Outpatient (CLI) | payer MEDICARE ==
[2020-01-16 22:29] LABS: MEAN CELL VOLUME 91 fl (80.0-100.0); MEAN CORPUSCULAR HGB CONC 30 g/dl (33.0-37.0); MEAN PLATELET VOLUME 11.6 fl (7.4-10.4); PLATELET COUNT 293 K/mm3 (130-400)
[2020-01-16 22:31] LABS: HEMATOCRIT 30.9 % (37.0-47.0); HEMOGLOBIN 9.2 g/dl (12.5-16.0); MEAN CORPUSCULAR HEMOGLOBIN 27 pg (27.0-31.0)
[2020-01-16 22:38] LABS: ALBUMIN 3.8 gm/dL (3.5-5.0); BILIRUBIN,TOTAL 0.3 mg/dL (0.0-1.0); C-REACTIVE PROTEIN 1.7 mg/dL (0.0-0.9); CALCIUM 9.7 mg/dL (8.4-10.2); CREATININE, serum 0.99 (0.52-1.25); POTASSIUM 4.3 mmol/L (3.4-5.0); TOTAL PROTEIN 7.5 gm/dL (6.4-8.2)
== END ==
LOC: ZCOL.LAB 22:20
PROVIDERS: Internal Medicine Infectious Disease
DX: Z01.89 Encounter for other specified special examinations (principal)

== ENCOUNTER → 2020-01-23 | Outpatient (CLI) | payer MEDICARE ==
[2020-01-23 17:06] LABS: MEAN CELL VOLUME 88 fl (80.0-100.0); MEAN CORPUSCULAR HGB CONC 31 g/dl (33.0-37.0); MEAN PLATELET VOLUME 11.5 fl (7.4-10.4); PLATELET COUNT 280 K/mm3 (130-400); RED BLOOD COUNT 3.41 M/mm3 (4.10-5.30); REDCELL DISTRIBUTION WIDTH-CV 13.7 % (11.5-14.5)
[2020-01-23 17:07] LABS: HEMATOCRIT 30.1 % (37.0-47.0); HEMOGLOBIN 9.3 g/dl (12.5-16.0); MEAN CORPUSCULAR HEMOGLOBIN 27 pg (27.0-31.0)
[2020-01-23 17:11] LABS: ALBUMIN 3.7 gm/dL (3.5-5.0); BILIRUBIN,TOTAL 0.4 mg/dL (0.0-1.0); C-REACTIVE PROTEIN 1.5 mg/dL (0.0-0.9); CALCIUM 9.6 mg/dL (8.4-10.2); CREATININE, serum 1.03 (0.52-1.25); POTASSIUM 4.1 mmol/L (3.4-5.0); TOTAL PROTEIN 7.2 gm/dL (6.4-8.2)
== END ==
LOC: ZCOL.LAB 16:42
PROVIDERS: Internal Medicine Infectious Disease
DX: M86.9 Osteomyelitis, unspecified (principal); E11.52 Type 2 diabetes mellitus with diabetic peripheral angiopathy with gangrene; I96 Gangrene, not elsewhere classified; Z79.4 Long term (current) use of insulin

== ENCOUNTER → 2020-01-30 | Outpatient (CLI) | payer MEDICARE ==
[2020-01-30 17:42] LABS: BASO % 0.2 % (0.0-2.0); EOS # 0.6 (0.0-0.7); EOS % 6.7 % (0-4.0); GRAN # 4.8 (1.4-6.5); GRAN % 53.3 % (42.2-75.2); LYMPH # 2.8 (1.2-3.4); LYMPH % 31.1 % (20.0-51.0); MEAN CELL VOLUME 89 fl (80.0-100.0); MEAN CORPUSCULAR HGB CONC 30 g/dl (33.0-37.0); MEAN PLATELET VOLUME 11.9 fl (7.4-10.4); MONO # 0.8 (0.1-0.6); MONO % 8.6 % (1.7-9.3); PLATELET COUNT 265 K/mm3 (130-400); RED BLOOD COUNT 3.49 M/mm3 (4.10-5.30); REDCELL DISTRIBUTION WIDTH-CV 13.7 % (11.5-14.5)
[2020-01-30 17:43] LABS: HEMATOCRIT 31.2 % (37.0-47.0); HEMOGLOBIN 9.5 g/dl (12.5-16.0); MEAN CORPUSCULAR HEMOGLOBIN 27 pg (27.0-31.0)
[2020-01-30 17:49] LABS: ALBUMIN 3.8 gm/dL (3.5-5.0); BILIRUBIN,TOTAL 0.4 mg/dL (0.0-1.0); C-REACTIVE PROTEIN 1.9 mg/dL (0.0-0.9); CALCIUM 9.6 mg/dL (8.4-10.2); CREATININE, serum 1.03 (0.52-1.25); POTASSIUM 4.1 mmol/L (3.4-5.0); TOTAL PROTEIN 7.5 gm/dL (6.4-8.2)
== END ==
LOC: ZCOL.LAB 17:16
PROVIDERS: Internal Medicine Infectious Disease
DX: Z45.2 Encounter for adjustment and management of vascular access device (principal); E11.52 Type 2 diabetes mellitus with diabetic peripheral angiopathy with gangrene; E11.69 Type 2 diabetes mellitus with other specified complication; M86.9 Osteomyelitis, unspecified; Z79.4 Long term (current) use of insulin

== ENCOUNTER → 2020-03-30 | Outpatient (CLI) | payer MEDICARE | LOC: ZCOL.LAB 17:49 | DX: E11.621 Type 2 diabetes mellitus with foot ulcer (principal); L97.509 Non-pressure chronic ulcer of other part of unspecified foot with unspecified severity; Z87.39 Personal history of other diseases of the musculoskeletal system and connective tissue ==